=== PATIENT | male | born 2000 | race Caucasian/White ===

== ENCOUNTER 2021-01-26 18:23 | Emergency (ER) | payer SELFPAY ==
[2021-01-26 22:40] LABS: Urine Blood Trace-intact (Negative); Urine Glucose Negative (Negative); Urine Protein Negative (Negative); Urine Specific Gravity >=1.030 (1.005-1.030)
[2021-01-26 22:52] LABS: Absolute Lymphocytes (CBC) 2.5 K/uL (0.7-4.9); Basophils % 0.4 % (0-1.3); Hematocrit 44.5 % (39.6-49.0); Lymphocytes % 28.4 % (15.3-44.8); MPV 8.9 fL (7.6-11.3)
[2021-01-26 22:56] LABS: Protime INR 1.01
[2021-01-26 23:04] LABS: Barbiturates NEGATIVE (NEGATIVE); Benzodiazepines NEGATIVE (NEGATIVE); Cocaine NEGATIVE (NEGATIVE); METHAMPHETAM NEGATIVE (NEGATIVE); Methadone NEGATIVE (NEGATIVE); Opiates NEGATIVE (NEGATIVE); Phencyclidine NEGATIVE (NEGATIVE); THC Cannibis POSITIVE (NEGATIVE)
[2021-01-26 23:25] LABS: ALT/SGPT 24 U/L (12-78); AST/SGOT 17 U/L (15-37); Alkaline Phosphatase 67 U/L (45-117); BUN Blood Urea Nitrogen 18 mg/dL (7-18); Bicarbonate 32 mmol/L (21-32); Bilirubin Direct 0.2 mg/dL (0-0.2); Bilirubin Total 0.5 mg/dL (0.2-1.0); Glucose Level 146 mg/dL (74-106); Potassium 3.9 mmol/L (3.5-5.1); Protein, Total 8.6 g/dL (6.4-8.2); Sodium Level 138 mmol/L (136-145)
--- NOTE | 2021-01-27 02:12 | ER ---
Nurse's Notes [facility] Name: Lokesh Alberts Age: 20 yrs Sex: Male : 2000 Arrival Date: 01/26/2021 Time: 18:24 Bed 16 Private MD: Diagnosis: Acute stress reaction Presentation: 01/26 19:21 Chief complaint: Patient states: I called the Suicide National Prevention Hotline and ca1 they told me to come here. I want to kill myself by slicing my throat. Had 1 previous attempt in the past year. Coronavirus screen: Client denies travel out of the [place] in the last 14 days. At this time, the client does not indicate any symptoms associated with coronavirus-19. Ebola Screen: Patient negative for fever greater than or equal to 101.5 degrees Fahrenheit, and additional compatible Ebola Virus Disease symptoms Patient denies exposure to infectious person. Patient denies travel to an Ebola-affected area in the 21 days before illness onset. No symptoms or risks identified at this time. Initial Sepsis Screen: Does the patient meet any 2 criteria? No. Patient's initial sepsis screen is negative. Does the patient have a suspected source of infection? No. Patient's initial sepsis screen is negative. Risk Assessment: Do you want to hurt yourself or someone else? Patient reports desire/thoughts of hurting themselves or someone else. Provider notified. Onset of symptoms was January 26, 2021. 19:21 Method Of Arrival: Ambulatory ca1 19:21 Acuity: ANTOLIN 2 ca1 Historical: - Allergies: 19:24 Zoloft; ca1 - Home Meds: 19:24 None [Active]; ca1 - PMHx: 19:24 Depressive disorder; Anxiety; ca1 - Immunization history:: Client reports having NOT received the Covid vaccine. Flu vaccine is up to date. - Social history:: Smoking status: Patient reports the use of cigarette tobacco products, smokes one pack cigarettes per day. Patient uses alcohol, but reports only rare drinking. street drugs, marijuana. Screenin:15 Abuse screen: Denies threats or abuse. Denies injuries from another. Nutritional bs2 screening: No deficits noted. Tuberculosis screening: No symptoms or risk factors identified. Fall Risk None identified. Assessment: 19:26 Reassessment: Reassessment: Notified charge nurse. Pt with aunt. ca1 21:15 General: Appears in no apparent distress. comfortable, slender, well groomed, well bs2 developed, well nourished, Behavior is calm, cooperative, appropriate for age. Pain: Denies pain. Neuro: No deficits noted. Cardiovascular: No deficits noted. Respiratory: No deficits noted. GI: No deficits noted. No signs and/or symptoms were reported involving the gastrointestinal system. : No deficits noted. No signs and/or symptoms were reported regarding the genitourinary system. EENT: No deficits noted. No signs and/or symptoms were reported regarding the EENT system. Derm: No deficits noted. No signs and/or symptoms reported regarding the dermatologic system. Musculoskeletal: No deficits noted. No signs and/or symptoms reported regarding the musculoskeletal system. Psych: 21:15 [place] Suicide Severity Screening: In the past month, have you wished you were bs2 or wished you could go to sleep and not wake up? Patient responds "yes." Based off the client's responses additional C-SSRS screening is required. "In the past month, have you actually had any thoughts of killing yourself?" Patient responds "yes." Based off the client's response additional [place] suicide severity screening questions to be further documented on paper forms. "In your lifetime, have you ever done anything, started to do anything, or prepared to do anything to end your life?" Patient responds "yes." Patient reports suicidal intent occurred greater than 3 months prior. Subjective: Patient's mood is sad, Delusions are denied, Hallucinations are denied Having thoughts of suicide. Denies suicidal plan. Objective: Patient is cooperative, Speech is normal, Affect is appropriate. Interventions: Searched person for dangerous items. Urine collected and sent for urine drug test. Safety Checks: Personal items have been removed. Door is open. Visitors are present. Pt denies substance abuse. Commitment: Patient will be a voluntary commitment. Vital Signs: 19:21 BP 132 / 91; Pulse 114; Resp 18 S; Temp 99.5; Pulse Ox 99% ; Weight 50.8 kg (R); Height ca1 5 ft. 8 in. (172.72 cm) (R); Pain 0/10; 07 02:00 BP 128 / 89 RA Sitting (auto/reg); Pulse 95 MON; Resp 15 S; Temp 98.6(O); Pulse Ox 100% bs2 on R/A; Pain 0/10; 01/26 19:21 Body Mass Index 17.03 (50.80 kg, 172.72 cm) ca1 [place] Coma Score: 01/26 21:15 Eye Response: spontaneous(4). Verbal Response: oriented(5). Motor Response: obeys bs2 commands(6). Total: 15. ED Course: 18:24 Patient arrived in ED. mr 19:24 Triage completed. ca1 19:24 Arm band placed on right wrist. ca1 21:14 Dusty Atkinson NP is PHCP. pm1 21:14 Candido Hurst MD is Attending Physician. pm1 21:15 Safety Checks: Personal items have been removed. The door is open or patient has been bs2 placed in a hallway bed/chair. A family member and/or friend is present and encouraged to stay. Sitter not present at this time due to or because pt is in view of nurses station, has family at bedside, door and curtain are open, pt was checked for weapons, all cords removed from room., also got verbal agreement with patient not to harm himself or attempt to harm himself here in ER. 21:15 Patient has correct armband on for positive identification. Bed in low position. Adult bs2 w/ patient. 22:09 Dayana Barry, PHILIP is Primary Nurse. bs2 23:47 Acetaminophen Sent. bs2 23:47 Basic Metabolic Panel Sent. bs2 01/27 00:11 called [facility] Crisis Line spoke to Tere to have a screener evaluate the patient. mw2 00:37 [facility] from [facility] called to inform us he is enroute to screen the patient. mw2 03:29 No provider procedures requiring assistance completed. IV discontinued. bs2 Administered Medications: No medications were administered Outcome: 02:11 Discharge ordered by MD. pm1 02:25 Discharge instructions given to patient, family, Instructed on discharge instructions, bs2 follow up and referral plans. Demonstrated understanding of instructions, follow-up care. 03:30 Patient left the ED. em 03:30 Discharged to home ambulatory, with family. bs2 03:30 Condition: improved Signatures: Erum Chris mr Polo Quintero RN RN em Dusty Atkinson, FIRE SAFETY MANAGER FIRE SAFETY MANAGER pm1 Laureano Madsen mw2 Deyanira Hagan, RN RN ca1 Dayana Barry RN RN bs2 Corrections: (The following items were deleted from the chart) 01/26 19 19:24 Allergies: No Known Allergies; ca1 ca1 19:26 Reassessment: ca1 ca1
--- NOTE | 2021-01-27 02:12 | EDPHYS ---
Physician Documentation [facility] Name: Lokesh Alberts Age: 20 yrs Sex: Male : 2000 Arrival Date: 01/26/2021 Time: 18:24 Bed 16 Private MD: ED Physician Candido Hurst HPI: 01/26 21:15 This 20 yrs old Male presents to ER via Ambulatory with complaints of Psych pm1 Problem. 21:15 The patient presents to the emergency department with suicide ideation, and the patient pm1 has a plan, Cut himself. Onset: The symptoms/episode began/occurred today. Past psychiatric history: Prior diagnosis: depression, Psychiatric medications include: none, Primary psychiatric physician: the patient does not have a primary psychiatric physician. Associated signs and symptoms: Pertinent negatives: abdominal pain, anxiety, delusions, fever, hallucinations, shortness of breath. Severity of symptoms: in the emergency department the symptoms have improved. The patient has experienced similar episodes in the past, several times. The patient has not recently seen a physician. Patient wanted to come to the ER for a prescription of antidepressants. Patient depressed and feeling suicidal after breaking up with his girlfriend. Historical: - Allergies: 19:24 Zoloft; ca1 - Home Meds: 19:24 None [Active]; ca1 - PMHx: 19:24 Depressive disorder; Anxiety; ca1 - Immunization history:: Client reports having NOT received the Covid vaccine. Flu vaccine is up to date. - Social history:: Smoking status: Patient reports the use of cigarette tobacco products, smokes one pack cigarettes per day. Patient uses alcohol, but reports only rare drinking. street drugs, marijuana. ROS: 21:15 Constitutional: Negative for fever, chills, and weight loss, Cardiovascular: Negative pm1 for chest pain, palpitations, and edema, Respiratory: Negative for shortness of breath, cough, wheezing, and pleuritic chest pain, Abdomen/GI: Negative for abdominal pain, nausea, vomiting, diarrhea, and constipation, MS/Extremity: Negative for injury and deformity, Skin: Negative for injury, rash, and discoloration. 21:15 All other systems are negative. Exam: 21:15 Constitutional: This is a well developed, well nourished patient who is awake, alert, pm1 and in no acute distress. Head/Face: Normocephalic, atraumatic. 21:15 Back: No spinal tenderness. No costovertebral tenderness. Full range of motion. 21:15 Skin: Warm, dry with normal turgor. Normal color with no rashes, no lesions, and no evidence of cellulitis. MS/ Extremity: Pulses equal, no cyanosis. Neurovascular intact. Full, normal range of motion. 21:15 Eyes: Exam is negative for acute changes, Periorbital structures: appear normal, Pupils: no acute changes, Extraocular movements: intact throughout, Conjunctiva: no acute changes, no injection. 21:15 ENT: Mouth: no acute changes, Lips: normal, Oral mucosa: normal, pink and intact, moist. 21:15 Cardiovascular: Exam negative for acute changes, Rate: normal, Rhythm: regular, Pulses: no pulse deficits are appreciated. 21:15 Respiratory: Exam negative for acute changes, respiratory distress, shortness of breath. 21:15 Abdomen/GI: Inspection: abdomen appears normal, Palpation: abdomen is soft and non-tender, in all quadrants. 21:15 Neuro: Exam negative for acute changes, Orientation: is normal, Mentation: is normal, Motor: is normal, moves all fours. Vital Signs: 19:21 BP 132 / 91; Pulse 114; Resp 18 S; Temp 99.5; Pulse Ox 99% ; Weight 50.8 kg (R); Height ca1 5 ft. 8 in. (172.72 cm) (R); Pain 0/10; 01/27 02:00 BP 128 / 89 RA Sitting (auto/reg); Pulse 95 MON; Resp 15 S; Temp 98.6(O); Pulse Ox 100% bs2 on R/A; Pain 0/10; 01/26 19:21 Body Mass Index 17.03 (50.80 kg, 172.72 cm) ca1 [place] Coma Score: 01/26 21:15 Eye Response: spontaneous(4). Verbal Response: oriented(5). Motor Response: obeys bs2 commands(6). Total: 15. MDM: 21:15 Patient medically screened. pm1 01/27 00:27 Data reviewed: vital signs. Data interpreted: Pulse oximetry: on room air is 99 %. pm1 Interpretation: normal. Counseling: I had a detailed discussion with the patient and/or guardian regarding: lab results. 00:42 ED course: Pending [facility] evalution. pm1 02:08 ED course: Leon Zeng, recommends outpatient evaluation and someone from [address] will be calling him to schedule an appointment. 01/26 21:14 Order name: Acetaminophen pm1 01/26 21:14 Order name: Basic Metabolic Panel pm1 01/26 21:14 Order name: CBC with Diff; Complete Time: 23:12 pm1 01/26 21:14 Order name: ETOH Level; Complete Time: 00:32 pm1 01/26 21:14 Order name: Hepatic Function; Complete Time: 00:32 pm1 01/26 21:14 Order name: PT-INR; Complete Time: 00:32 pm1 01/26 21:14 Order name: Ptt, Activated; Complete Time: 00:32 pm1 01/26 21:14 Order name: Salicylate; Complete Time: 00:32 pm1 01/26 21:14 Order name: Urine Drug Screen; Complete Time: 23:12 pm1 01/26 21:14 Order name: Acetaminophen Level; Complete Time: 00:32 EDMS 01/26 21:14 Order name: Basic Metabolic Panel; Complete Time: 00:32 EDMS 01/26 22:39 Order name: Urine Dipstick-Ancillary; Complete Time: 22:53 EDMS 01/26 22:40 Order name: SARS-COV-2 RT PCR; Complete Time: 22:53 EDMS 01/26 21:14 Order name: EKG - Nurse/Tech pm1 01/26 21:14 Order name: Labs collected and sent; Complete Time: 23:47 pm1 01/26 21:14 Order name: Suicide Screening ([place]); Complete Time: 23:47 pm1 01/26 21:14 Order name: Urine Dipstick-Ancillary (obtain specimen); Complete Time: 23:47 pm1 Administered Medications: No medications were administered Disposition: 13:19 Co-signature as Attending Physician, Candido Hurst MD I agree with the assessment and jatinder plan of care. Disposition Summary: 01/27/21 02:11 Discharge Ordered Location: Home pm1 Problem: new pm1 Symptoms: have improved pm1 Condition: Stable pm1 Diagnosis - Acute stress reaction pm1 Followup: pm1 - With: Emergency Department - When: As needed - Reason: Worsening of condition Followup: pm1 - With: Private Physician - When: 2 - 3 days - Reason: Recheck today's complaints, Continuance of care, Re-evaluation by your physician Discharge Instructions: - Discharge Summary Sheet pm1 - Stress, Adult pm1 Forms: - Medication Reconciliation Form pm1 - Thank You Letter pm1 - Antibiotic Education pm1 - Prescription Opioid Use pm1 Signatures: Dispatcher [employer] EDMS Candido Hurst MD MD cha Marinas, Patrick, SECURITY PROJECT MANAGER SECURITY PROJECT MANAGER pm1 Deyanira Hagan RN RN ca1 Corrections: (The following items were deleted from the chart) 01/26 19:25 19:24 Allergies: No Known Allergies; ca1 ca1 21:33 21:15 CORONAVIRUS+MR.LAB.BRZ ordered. EDMN EDMS
[2021-01-27 05:31] VITALS: BP 132/91; TEMP 99.5; O2SAT 99
== END 2021-01-27 03:30 | disposition home or self-care (01) ==
LOC: ER 18:23
DX: F43.0 Acute stress reaction (principal); F17.210 Nicotine dependence, cigarettes, uncomplicated; Z20.822 Contact with and (suspected) exposure to COVID-19; Z88.5 Allergy status to narcotic agent
CPT/HCPCS: 36415; 80048; 80076; 80307; 80320; 80329; 81003; 85025; 85610; 85730; 99284; U0003

== ENCOUNTER 2022-05-28 12:38 | Emergency (ER) | payer SELFPAY ==
--- NOTE | 2022-05-28 13:47 | ER ---
Nurse's Notes [facility] Name: Lokesh Alberts Age: 21 yrs Sex: Male : 2000 Arrival Date: 05/28/2022 Time: 12:43 Bed Treatment Private MD: Diagnosis: Acute serous otitis media, right ear Presentation: 05/28 13:02 Chief complaint: Right ear pain and decreased hearing x 3 days. Coronavirus screen: At this time, the client does not indicate any symptoms associated with coronavirus-19. Ebola Screen: No symptoms or risks identified at this time. Initial Sepsis Screen: Does the patient meet any 2 criteria? No. Patient's initial sepsis screen is negative. Does the patient have a suspected source of infection? No. Patient's initial sepsis screen is negative. Risk Assessment: Do you want to hurt yourself or someone else? Patient reports no desire to harm self or others. Onset of symptoms was May 25, 2022. 13:02 Method Of Arrival: Ambulatory 13:02 Acuity: ANTOLIN 4 Historical: - Allergies: 13:03 Zoloft; ss - PMHx: 13:03 Anxiety; depressive disorder; ss Screenin:52 Abuse screen: Denies threats or abuse. Denies injuries from another. Nutritional iw screening: No deficits noted. Tuberculosis screening: No symptoms or risk factors identified. Fall Risk None identified. Assessment: 13:52 General: Appears in no apparent distress. Behavior is calm, cooperative. Pain: iw Complains of pain in right ear. Neuro: Level of Consciousness is awake, alert, obeys commands, Oriented to person, place, time, situation, Moves all extremities. Full function. Cardiovascular: Patient's skin is warm and dry. Respiratory: Airway is patent Respiratory effort is even, unlabored, Respiratory pattern is regular, symmetrical, Ventilator assessment:. EENT: No deficits noted. Derm: Skin is intact, is healthy with good turgor. Vital Signs: 13:02 BP 125 / 78; Pulse 89; Resp 16; Temp 99.7; Pulse Ox 98% ; Weight 58.97 kg; Height 5 ft. ss 8 in. (172.72 cm); Pain 1/10; 13:02 Body Mass Index 19.77 (58.97 kg, 172.72 cm) ED Course: 12:43 Patient arrived in ED. am2 12:59 Markus Sauer is PHCP. jl9 12:59 Kenan Villar MD is Attending Physician. jl9 13:03 Triage completed. 13:52 Lo Zarate, RN is Primary Nurse. iw Administered Medications: No medications were administered Outcome: 13:46 Discharge ordered by . jl9 13:52 Patient left the ED. iw Signatures: Lo Zarate, RN PHILIP Audelia Bhatia RN RN Charisse Oviedo am2 Markus Sauer jl9
--- NOTE | 2022-05-28 13:47 | EDPHYS ---
Physician Documentation [facility] Name: Lokesh Alberts Age: 21 yrs Sex: Male : 2000 Arrival Date: 05/28/2022 Time: 12:43 Bed Treatment Private MD: ED Physician Kenan Villar HPI: 05/28 13:44 This 21 yrs old Male presents to ER via Ambulatory with complaints of Ear jl9 Pain - right. 13:44 The patient presents with pain, moderate. The complaints affect the right ear. Onset: jl9 The symptoms/episode began/occurred yesterday. Modifying factors: The symptoms are alleviated by nothing, the symptoms are aggravated by nothing. Associated signs and symptoms: The patient has no apparent associated signs or symptoms. Severity of symptoms: Pain is currently a 3 / 10. Historical: - Allergies: 13:03 Zoloft; ss - PMHx: 13:03 Anxiety; depressive disorder; ss ROS: 13:45 Constitutional: Negative for fever, chills, and weight loss, Eyes: Negative for injury, jl9 pain, redness, and discharge. 13:45 Neck: Negative for injury, pain, and swelling, Cardiovascular: Negative for chest pain, palpitations, and edema, Respiratory: Negative for shortness of breath, cough, wheezing, and pleuritic chest pain, Abdomen/GI: Negative for abdominal pain, nausea, vomiting, diarrhea, and constipation, Back: Negative for injury and pain, : Negative for injury, bleeding, discharge, and swelling, MS/Extremity: Negative for injury and deformity, Skin: Negative for injury, rash, and discoloration, Neuro: Negative for headache, weakness, numbness, tingling, and seizure, Psych: Negative for depression, anxiety, suicide ideation, homicidal ideation, and hallucinations, Allergy/Immunology: Negative for hives, rash, and allergies, Endocrine: Negative for neck swelling, polydipsia, polyuria, polyphagia, and marked weight changes, Hematologic/Lymphatic: Negative for swollen nodes, abnormal bleeding, and unusual bruising. 13:45 ENT: Positive for ear pain. Exam: 13:45 Constitutional: This is a well developed, well nourished patient who is awake, alert, jl9 and in no acute distress. Head/Face: Normocephalic, atraumatic. Eyes: Pupils equal round and reactive to light, extra-ocular motions intact. Lids and lashes normal. Conjunctiva and sclera are non-icteric and not injected. Cornea within normal limits. Periorbital areas with no swelling, redness, or edema. 13:45 Neck: Trachea midline, no thyromegaly or masses palpated, and no cervical lymphadenopathy. Supple, full range of motion without nuchal rigidity, or vertebral point tenderness. No Meningismus. Chest/axilla: Normal chest wall appearance and motion. Nontender with no deformity. No lesions are appreciated. Cardiovascular: Regular rate and rhythm with a normal S1 and S2. No gallops, murmurs, or rubs. Normal PMI, no JVD. No pulse deficits. Respiratory: Lungs have equal breath sounds bilaterally, clear to auscultation and percussion. No rales, rhonchi or wheezes noted. No increased work of breathing, no retractions or nasal flaring. Abdomen/GI: Soft, non-tender, with normal bowel sounds. No distension or tympany. No guarding or rebound. No evidence of tenderness throughout. Back: No spinal tenderness. No costovertebral tenderness. Full range of motion. Skin: Warm, dry with normal turgor. Normal color with no rashes, no lesions, and no evidence of cellulitis. MS/ Extremity: Pulses equal, no cyanosis. Neurovascular intact. Full, normal range of motion. Neuro: Awake and alert, GCS 15, oriented to person, place, time, and situation. Cranial nerves II-XII grossly intact. Motor strength 5/5 in all extremities. Sensory grossly intact. Cerebellar exam normal. Normal gait. Psych: Awake, alert, with orientation to person, place and time. Behavior, mood, and affect are within normal limits. 13:45 ENT: External ear(s): are unremarkable, Ear canal(s): are normal, TM's: erythema, that is moderate, Nose: is normal, Mouth: is normal, Posterior pharynx: is normal. Vital Signs: 13:02 BP 125 / 78; Pulse 89; Resp 16; Temp 99.7; Pulse Ox 98% ; Weight 58.97 kg; Height 5 ft. ss 8 in. (172.72 cm); Pain 1/10; 13:02 Body Mass Index 19.77 (58.97 kg, 172.72 cm) MDM: 13:09 Patient medically screened. jl9 13:45 Data reviewed: vital signs, nurses notes. Counseling: I had a detailed discussion with jl9 the patient and/or guardian regarding: the historical points, exam findings, and any diagnostic results supporting the discharge/admit diagnosis, the need for outpatient follow up, to return to the emergency department if symptoms worsen or persist or if there are any questions or concerns that arise at home. Administered Medications: No medications were administered Disposition Summary: 05/28/22 13:46 Discharge Ordered Location: Home jl9 Condition: Stable jl9 Diagnosis - Acute serous otitis media, right ear jl9 Followup: jl9 - With: Private Physician - When: 1 - 2 days - Reason: Recheck today's complaints, Continuance of care, Re-evaluation by your physician Discharge Instructions: - Discharge Summary Sheet jl9 - Otitis Media, Adult, [id number] jl9 Forms: - Medication Reconciliation Form jl9 - Thank You Letter jl9 - Antibiotic Education jl9 - Prescription Opioid Use jl9 Prescriptions: - Amoxicillin 875 mg Oral Tablet - take 1 tablet by ORAL route every 12 hours for 10 days; 20 tablet; Refills: 0, jl9 Product Selection Permitted Signatures: Audelia Bhatia, RN RN Markus Love jl9
[2022-05-28 14:25] VITALS: BP 125/78; TEMP 99.7; O2SAT 98
== END 2022-05-28 13:52 | disposition home or self-care (01) ==
LOC: ER 12:38
DX: H65.01 Acute serous otitis media, right ear (principal); Z88.8 Allergy status to other drugs, medicaments and biological substances
CPT/HCPCS: 99281

== ENCOUNTER 2022-07-23 13:28 | Emergency (ER) | payer SELFPAY ==
[2022-07-23 14:20] LABS: Urine Blood Trace-intact (Negative); Urine Glucose Negative (Negative); Urine Protein 1+ (Negative); Urine Specific Gravity >=1.030 (1.005-1.030); Urine pH 5.5 (5.0-7.0)
[2022-07-23 14:30] LABS: Lymphocytes % 14.3 % (15.3-44.8); MCV 87.8 fL (80-100); MPV 8.1 fL (7.6-11.3); RBC Red Blood Cell Count 5.01 M/uL (4.33-5.43)
[2022-07-23 14:54] LABS: Albumin 4.6 g/dL (3.4-5.0); Bilirubin Total 0.8 mg/dL (0.2-1.0); Protein, Total 7.8 g/dL (6.4-8.2)
[2022-07-23] MEDS ORDERED: NA CHLORIDE 0.9% 1,000 ML ONE (14:56)
--- NOTE | 2022-07-23 17:22 | RAD REPORT ---
EXAM DESCRIPTION: CT - Abdomen Pelvis W Contrast - 07/23/2022 5:04 pm CLINICAL HISTORY: abd pain COMPARISON: <Comparisons> TECHNIQUE: Biphasic, helical CT imaging of the abdomen and pelvis was performed following 100 ml non -ionic IV contrast. Oral contrast: No. All CT scans are performed using dose optimization technique as appropriate and may include automated exposure control or mA/KV adjustment according to patient size. FINDINGS: No suspicious findings in the lung bases. The liver, spleen, and pancreas show no suspicious findings. Gallbladder and biliary tree are also wi thout suspicious finding. Symmetric renal function is seen with no hydronephrosis or suspicious renal mass. No pyelonephritis o r acute parenchymal process. No bladder abnormalities. No adrenal abnormalities. No dilated bowel loops or bowel wall thickening. Appendix is normal. No free air, free fluid or infla mmatory stranding. No hernia, mass or bulky lymphadenopathy. A few small nonspecific sub centimeter mesenteric nodes seen. No suspicious bony findings. IMPRESSION: Contrast enhanced CT abdomen and pelvis showing no significant or suspicious finding.
--- NOTE | 2022-07-23 17:27 | ER ---
Nurse's Notes [facility] Name: Lokesh Alberts Age: 21 yrs Sex: Male : 2000 Arrival Date: 07/23/2022 Time: 13:30 Bed DIS2 Private MD: Diagnosis: Lower abdominal pain, unspecified Presentation: 07/23 13:31 Chief complaint: Patient states: back pain that began 1 week ago. No known injury. ss Coronavirus screen: Client denies travel out of the [place] in the last 14 days. Ebola Screen: Patient denies exposure to infectious person. Patient denies travel to an Ebola-affected area in the 21 days before illness onset. Initial Sepsis Screen: Does the patient meet any 2 criteria? No. Patient's initial sepsis screen is negative. Does the patient have a suspected source of infection? No. Patient's initial sepsis screen is negative. 13:31 Method Of Arrival: EMS: [facility] 13:46 Chief complaint: Patient states: Bilateral flank pain that wraps around to lower kb3 abdomen on both sides with nausea. Risk Assessment: Do you want to hurt yourself or someone else? Patient reports no desire to harm self or others. Onset of symptoms was July 17, 2022. 13:46 Acuity: ANTOLIN 3 kb3 Triage Assessment: 13:47 General: Appears in no apparent distress. Behavior is calm, cooperative. Pain: kb3 Complains of pain in left low back and right low back Pain radiates to right lower quadrant and left lower quadrant. Historical: - Allergies: 13:47 Zoloft; kb3 - Home Meds: 13:47 None [Active]; kb3 - PMHx: 13:47 Anxiety; depressive disorder; kb3 - PSHx: 13:47 None; kb3 - Immunization history:: Adult Immunizations up to date, Client reports having NOT received the Covid vaccine. Last tetanus immunization: up to date. - Social history:: Smoking status: Patient reports the use of cigarette tobacco products. Screenin:26 [facility] ED Fall Risk Assessment (Adult) History of falling in the last 3 months, jh5 including since admission No falls in past 3 months (0 pts) Confusion or Disorientation No (0 pts) Intoxicated or Sedated No (0 pts) Impaired Gait No (0 pts) Mobility Assist Device Used No (0 pt) Altered Elimination No (0 pt) Score/Fall Risk Level 0 - 2 = Low Risk. Abuse screen: Denies threats or abuse. Denies injuries from another. Nutritional screening: No deficits noted. Tuberculosis screening: No symptoms or risk factors identified. Assessment: 15:55 General: Appears in no apparent distress. comfortable, Behavior is calm, cooperative. ss Pain: Complains of pain in right low back and left low back Pain currently is 5 out of 10 on a pain scale. Quality of pain is described as tender, Is continuous. Neuro: Level of Consciousness is awake, alert, obeys commands, Oriented to person, place, time, situation. Cardiovascular: Capillary refill < 3 seconds is brisk in bilateral fingers. Respiratory: Airway is patent Respiratory effort is even, unlabored, Respiratory pattern is regular, symmetrical. GI: No signs and/or symptoms were reported involving the gastrointestinal system. Derm: Skin is intact, is healthy with good turgor, Skin is pink, warm \T\ dry. normal. Musculoskeletal: Circulation, motion, and sensation intact. Range of motion: Swelling absent. Vital Signs: 13:46 BP 129 / 92; Pulse 108; Resp 18; Temp 98.2; Pulse Ox 100% ; Weight 54.43 kg; Height 5 kb3 ft. 8 in. (172.72 cm); Pain 5/10; 13:46 Body Mass Index 18.25 (54.43 kg, 172.72 cm) kb3 ED Course: 13:30 Patient arrived in ED. as 13:33 [facility] Val[facility]C [facility] kb 13:33 Johnny Henderson DO is Attending Physician. kb 13:47 Triage completed. kb3 13:47 Arm band placed on right wrist. kb3 14:25 CBC with Diff Sent. jh5 14:25 CMP Sent. jh5 14:25 Lipase Sent. jh5 14:25 Inserted saline lock: 20 gauge in left antecubital area, using aseptic technique. jh5 14:26 Patient has correct armband on for positive identification. jh5 14:26 No provider procedures requiring assistance completed. jh5 15:54 Audelia Bhatia, RN is Primary Nurse. ss 17:06 CT Abd/Pelvis - IV Contrast Only In Process Unspecified. EDMS 17:35 IV discontinued, intact, bleeding controlled, No redness/swelling at site. Pressure ss dressing applied. Administered Medications: 14:52 Drug: NS 0.9% 1000 ml Route: IV; Rate: 1000 ml; Site: left antecubital; ss 15:54 Follow up: IV Status: Completed infusion; IV Intake: 1000ml ss Medication: 15:55 VIS not applicable for this client. ss Intake: 15:54 IV: 1000ml; Total: 1000ml. ss Outcome: 17:27 Discharge ordered by . keith 17:35 Discharged to home ambulatory. ss 17:35 Condition: good 17:35 Discharge instructions given to patient, Instructed on discharge instructions, follow up and referral plans. medication usage, Demonstrated understanding of instructions, follow-up care, medications. 17:38 Patient left the ED. ss Signatures: Dispatcher [employer] EDMS Kirsten Valera, POLO MONREAL-Arianna Rankin Shelby, RN RN Juliette Ambriz RN RN jh5 Brooke Bledsoe, RN RN kb3
--- NOTE | 2022-07-23 17:28 | EDPHYS ---
Physician Documentation [facility] Name: Lokesh Alberts Age: 21 yrs Sex: Male : 2000 Arrival Date: 07/23/2022 Time: 13:30 Bed DIS2 Private MD: ED Physician Johnny Henderson HPI: 07/24 00:37 This 21 yrs old Male presents to ER via EMS with complaints of Weakness, Arm Pain, Low kb Back Pain, Abdominal Pain. 00:37 The patient presents with abdominal pain in the lower abdomen. kb 00:37 Onset: The symptoms/episode began/occurred 1 week(s) ago. The symptoms radiate to back. kb Associated signs and symptoms: none. The symptoms are described as constant. Modifying factors: The symptoms are alleviated by nothing, the symptoms are aggravated by nothing. Severity of pain: At its worst the pain was moderate in the emergency department the pain is unchanged. The patient has not experienced similar symptoms in the past. The patient has not recently seen a physician. Historical: - Allergies: 07/23 13:47 Zoloft; kb3 - Home Meds: 13:47 None [Active]; kb3 - PMHx: 13:47 Anxiety; depressive disorder; kb3 - PSHx: 13:47 None; kb3 - Immunization history:: Adult Immunizations up to date, Client reports having NOT received the Covid vaccine. Last tetanus immunization: up to date. - Social history:: Smoking status: Patient reports the use of cigarette tobacco products. ROS: 07/24 00:37 Constitutional: Negative for fever, chills, and weight loss. kb Abdomen/GI: Positive for abdominal pain, Negative for nausea, vomiting, and diarrhea. All other systems are negative. Exam: 00:37 Constitutional: This is a well developed, well nourished patient who is awake, alert, kb and in no acute distress. Head/Face: Normocephalic, atraumatic. ENT: Moist Mucous membranes Cardiovascular: Regular rate and rhythm with a normal S1 and S2. No gallops, murmurs, or rubs. No pulse deficits. Respiratory: Respirations even and unlabored. No increased work of breathing. Talking in full sentences Skin: Warm, dry with normal turgor. Normal color. MS/ Extremity: Pulses equal, no cyanosis. Neurovascular intact. Full, normal range of motion. Neuro: Awake and alert, GCS 15, oriented to person, place, time, and situation. Moves all extremities. Normal gait. Psych: Awake, alert, with orientation to person, place and time. Behavior, mood, and affect are within normal limits. 00:37 Abdomen/GI: Inspection: abdomen appears normal, Bowel sounds: normal, Palpation: soft, in all quadrants, mild abdominal tenderness, in the right lower quadrant and left lower quadrant. Vital Signs: 07/23 13:46 BP 129 / 92; Pulse 108; Resp 18; Temp 98.2; Pulse Ox 100% ; Weight 54.43 kg; Height 5 kb3 ft. 8 in. (172.72 cm); Pain 5/10; 13:46 Body Mass Index 18.25 (54.43 kg, 172.72 cm) kb3 MDM: 13:45 Patient medically screened. kb 07/24 00:37 Data reviewed: vital signs, nurses notes. Data interpreted: Pulse oximetry: on room air kb is 100 %. Interpretation: normal. Counseling: I had a detailed discussion with the patient and/or guardian regarding: the historical points, exam findings, and any diagnostic results supporting the discharge/admit diagnosis, lab results, radiology results, the need for outpatient follow up, a family practitioner, to return to the emergency department if symptoms worsen or persist or if there are any questions or concerns that arise at home. 00:43 Differential diagnosis: appendicitis, diverticulitis, Ureterolithiasis. kb 07/23 13:47 Order name: CBC with Diff; Complete Time: 14:43 kb 07/23 13:47 Order name: CMP; Complete Time: 15:08 kb 07/23 13:47 Order name: Lipase; Complete Time: 15:08 kb 07/23 14:21 Order name: Urine Dipstick-Ancillary; Complete Time: 14:43 EDMS 07/23 16:22 Order name: CT Abd/Pelvis - IV Contrast Only; Complete Time: 17:26 kb 07/23 13:47 Order name: IV Saline Lock; Complete Time: 14:25 kb 07/23 13:47 Order name: Labs collected and sent; Complete Time: 14:25 kb 07/23 13:47 Order name: Urine Dipstick-Ancillary (obtain specimen); Complete Time: 14:25 kb Administered Medications: 07/23 14:52 Drug: NS 0.9% 1000 ml Route: IV; Rate: 1000 ml; Site: left antecubital; 15:54 Follow up: IV Status: Completed infusion; IV Intake: 1000ml ss Disposition Summary: 07/23/22 17:27 Discharge Ordered Location: Home kb Condition: Stable kb Diagnosis - Lower abdominal pain, unspecified kb Followup: kb - With: Emergency Department - When: As needed - Reason: Worsening of condition Followup: kb - With: Private Physician - When: 2 - 3 days - Reason: Recheck today's complaints, Continuance of care, Re-evaluation by your physician Discharge Instructions: - Discharge Summary Sheet kb - Abdominal Pain, Adult, [id number] kb Forms: - Medication Reconciliation Form kb - Thank You Letter kb - Antibiotic Education kb - Prescription Opioid Use kb Addendum: 07/25/2022 12:37 Co-signature as Attending Physician, Johnny Henderson DO I was immediately available on-site m s3 in the Emergency Department for consultation in the care of the patient.. Signatures: Dispatcher [employer] Kirsten Nieves, AUTOMATION AND CONTROLS SUPERVISOR-C AUTOMATION AND CONTROLS SUPERVISOR-Ckb Audelia Bhatia, RN RN Johnny Dias DO DO ms3 Brooke Bledsoe, RN RN kb3
[2022-07-23 18:23] VITALS: BP 129/92; TEMP 98.2; O2SAT 100
== END 2022-07-23 17:38 | disposition home or self-care (01) ==
LOC: ER 13:28
DX: R10.31 Right lower quadrant pain (principal); R10.32 Left lower quadrant pain; Z72.0 Tobacco use; Z88.8 Allergy status to other drugs, medicaments and biological substances
CPT/HCPCS: 36415; 74177; 80053; 81003; 83690; 85025; 96360; 99284; J7030; Q9967

== ENCOUNTER 2022-08-23 12:35 | Emergency (ER) | payer SELFPAY ==
--- NOTE | 2022-08-23 14:06 | RAD REPORT ---
EXAM DESCRIPTION: Denise Single View08/23/2022 2:01 pm CLINICAL HISTORY: Chest pain COMPARISON: none FINDINGS: The lungs appear clear of acute infiltrate. The heart is normal size IMPRESSION: No acute abnormalities displayed
--- NOTE | 2022-08-23 14:07 | RAD REPORT ---
EXAM DESCRIPTION: Ribs Right - 08/23/2022 2:01 pm CLINICAL HISTORY: Right rib pain FINDINGS: No fracture is seen. No pneumothorax Two views obtained
[2022-08-23 15:44] LABS: Absolute Lymphocytes (CBC) 1.5 K/uL (0.7-4.9); Hematocrit 43.8 % (39.6-49.0); Lymphocytes % 26.5 % (15.3-44.8); MPV 8.2 fL (7.6-11.3); RBC Red Blood Cell Count 4.92 M/uL (4.33-5.43)
[2022-08-23 15:48] LABS: Protime INR 1.05
[2022-08-23 16:01] LABS: Albumin 4.6 g/dL (3.4-5.0); Bilirubin Total 0.6 mg/dL (0.2-1.0); Potassium 4.5 mmol/L (3.5-5.1)
--- NOTE | 2022-08-23 16:40 | EDPHYS ---
Physician Documentation [facility] Name: Lokesh Alberts Age: 22 yrs Sex: Male : 2000 Arrival Date: 08/23/2022 Time: 12:36 Bed 11 Private MD: ED Physician Iveth Thompson HPI: 08/23 16:12 This 22 yrs old Male presents to ER via Ambulatory with complaints of Rib pain/abd pain.sp3 16:12 22-year-old male with history of anxiety presents to the ED with chief complaint of sp3 right upper quadrant abdominal pain and rib pain for approximately 4 days. Patient states his pain is getting better but today he had a "twinge" of it reminded him that it was there and so he decided to come into the ED for evaluation. Pain comes and goes and is not associated with any food or activity patterns. On review of systems he denies headache, neck pain, fever, URI symptoms, nausea, vomiting, diarrhea, chest pain, shortness of breath, back pain, rash known sick contacts, travel history, or any other symptoms at this time. There is no past surgical history noted. He consumes 1-2 beers a day and smokes occasionally and denies any recreational drug use.. Historical: - Allergies: 14:23 Zoloft; ss - Home Meds: 14:23 None [Active]; ss - PMHx: 14:23 Anxiety; depressive disorder; ss - Immunization history:: Client reports receiving the 2nd dose of the Covid vaccine. - Social history:: Smoking status: Patient reports the use of cigarette tobacco products, denies chronic smoking, but will smoke occasionally, Reported history of juuling and/or vaping. ROS: 16:13 Constitutional: Negative for fever, chills, and weight loss, Eyes: Negative for injury, sp3 pain, redness, and discharge, ENT: Negative for injury, pain, and discharge, Neck: Negative for injury, pain, and swelling, Cardiovascular: Negative for chest pain, palpitations, and edema, Respiratory: Negative for shortness of breath, cough, wheezing, and pleuritic chest pain, Back: Negative for injury and pain, MS/Extremity: Negative for injury and deformity, Skin: Negative for injury, rash, and discoloration, Neuro: Negative for headache, weakness, numbness, tingling, and seizure, Psych: Negative for depression, anxiety, suicide ideation, homicidal ideation, and hallucinations, Allergy/Immunology: Negative for hives, rash, and allergies, Endocrine: Negative for neck swelling, polydipsia, polyuria, polyphagia, and marked weight changes, Hematologic/Lymphatic: Negative for swollen nodes, abnormal bleeding, and unusual bruising. 16:13 All other systems are negative. Exam: 16:14 Constitutional: This is a well developed, well nourished patient who is awake, alert, sp3 and in no acute distress. Head/Face: Normocephalic, atraumatic. Eyes: Pupils equal round and reactive to light, extra-ocular motions intact. Lids and lashes normal. Conjunctiva and sclera are non-icteric and not injected. Cornea within normal limits. Periorbital areas with no swelling, redness, or edema. Neck: Trachea midline, no thyromegaly or masses palpated, and no cervical lymphadenopathy. Supple, full range of motion without nuchal rigidity, or vertebral point tenderness. No Meningismus. Chest/axilla: Normal chest wall appearance and motion. Nontender with no deformity. No lesions are appreciated. Cardiovascular: Regular rate and rhythm with a normal S1 and S2. No gallops, murmurs, or rubs. Normal PMI, no JVD. No pulse deficits. Respiratory: Lungs have equal breath sounds bilaterally, clear to auscultation and percussion. No rales, rhonchi or wheezes noted. No increased work of breathing, no retractions or nasal flaring. Back: No spinal tenderness. No costovertebral tenderness. Full range of motion. Skin: Warm, dry with normal turgor. Normal color with no rashes, no lesions, and no evidence of cellulitis. MS/ Extremity: Pulses equal, no cyanosis. Neurovascular intact. Full, normal range of motion. Neuro: Awake and alert, GCS 15, oriented to person, place, time, and situation. Cranial nerves II-XII grossly intact. Motor strength 5/5 in all extremities. Sensory grossly intact. Cerebellar exam normal. Normal gait. Psych: Awake, alert, with orientation to person, place and time. Behavior, mood, and affect are within normal limits. Vital Signs: 14:22 BP 120 / 80; Pulse 92; Resp 15; Temp 98.1(TE); Pulse Ox 100% on R/A; Weight 52.16 kg; ss Height 5 ft. 8 in. (172.72 cm); Pain 0/10; 16:09 BP 126 / 88; Pulse 80; Resp 18; Pulse Ox 100% on R/A; Pain 3/10; mb9 14:22 Body Mass Index 17.49 (52.16 kg, 172.72 cm) ss MDM: 16:04 Patient medically screened. sp3 16:14 Data reviewed: vital signs, nurses notes, lab test result(s), radiologic studies. ED sp3 course: 22-year-old male with right upper quadrant abdominal pain that is now fully resolved. Differential diagnosis includes liver pathology, biliary pathology including cholecystitis, cholelithiasis, pancreatitis, constipation, colitis, functional abdominal pain, and others. Clinically I ruled out kidney stone, UTI, pathology, aortic pathology including aneurysm and dissection, sepsis, shock, any other critical findings at this time. Not indicated at this time. If laboratory work including liver function and x-rays are negative, will discharge patient home with PCP follow-up with general precautions.. 16:38 ED course: Work-up is negative and we will discharge patient home at this time.. sp3 08/23 14:26 Order name: CBC with Diff; Complete Time: 16:25 ss 08/23 14:26 Order name: CMP; Complete Time: 16:25 ss 08/23 13:05 Order name: CXR XRAY sp3 08/23 13:05 Order name: Ribs Right XRAY; Complete Time: 16:25 sp3 08/23 14:26 Order name: Lipase; Complete Time: 16:25 ss 08/23 14:26 Order name: PT-INR; Complete Time: 16:25 ss 08/23 14:07 Order name: RAD; Complete Time: 16:25 EDMS 08/23 14:26 Order name: IV Saline Lock; Complete Time: 15:38 ss 08/23 14:26 Order name: Labs collected and sent; Complete Time: 15:38 ss Administered Medications: No medications were administered Disposition Summary: 08/23/22 16:39 Discharge Ordered Location: Home sp3 Condition: Stable sp3 Diagnosis - Abdominal pain sp3 Followup: sp3 - With: Private Physician - When: Upon discharge from the Emergency Department - Reason: Further diagnostic work-up Discharge Instructions: - Discharge Summary Sheet sp3 - Abdominal Pain, Adult sp3 Forms: - Medication Reconciliation Form sp3 - Thank You Letter sp3 - Antibiotic Education sp3 - Prescription Opioid Use sp3 Signatures: Dispatcher [employer] Audelia Leach, RN RN Iveth Cardenas MD MD sp3
--- NOTE | 2022-08-23 16:40 | ER ---
Nurse's Notes [facility] Name: Lokesh Alberts Age: 22 yrs Sex: Male : 2000 Arrival Date: 08/23/2022 Time: 12:36 Bed 11 Private MD: Diagnosis: Abdominal pain Presentation: 08/23 14:22 Chief complaint: Patient states: "The past couple of days, I've drank a little more ss than I should have. I've been having pain under my ribs after I drink water and I just want to get it checked out." Pt states that pain began 3-4 days ago. Coronavirus screen: Client denies travel out of the [place] in the last 14 days. Ebola Screen: Patient denies exposure to infectious person. Patient denies travel to an Ebola-affected area in the 21 days before illness onset. Initial Sepsis Screen: Does the patient meet any 2 criteria? No. Patient's initial sepsis screen is negative. Does the patient have a suspected source of infection? No. Patient's initial sepsis screen is negative. Risk Assessment: Do you want to hurt yourself or someone else? Patient reports no desire to harm self or others. Onset of symptoms was August 20, 2022. 14:22 Method Of Arrival: Ambulatory ss 14:22 Acuity: ANTOLIN 3 ss Historical: - Allergies: 14:23 Zoloft; ss - Home Meds: 14:23 None [Active]; ss - PMHx: 14:23 Anxiety; depressive disorder; ss - Immunization history:: Client reports receiving the 2nd dose of the Covid vaccine. - Social history:: Smoking status: Patient reports the use of cigarette tobacco products, denies chronic smoking, but will smoke occasionally, Reported history of juuling and/or vaping. Screenin:09 [facility] ED Fall Risk Assessment (Adult) History of falling in the last 3 months, mb9 including since admission No falls in past 3 months (0 pts) Confusion or Disorientation No (0 pts) Intoxicated or Sedated No (0 pts) Impaired Gait No (0 pts) Mobility Assist Device Used No (0 pt) Altered Elimination No (0 pt) Score/Fall Risk Level 0 - 2 = Low Risk Oriented to surroundings, Maintained a safe environment, Educated pt \\T\\ family on fall prevention, incl call for assistance when getting out of bed. Abuse screen: Denies threats or abuse. Nutritional screening: No deficits noted. Tuberculosis screening: No symptoms or risk factors identified. Assessment: 14:10 Reassessment: called patient to triage. No answer. Unable to locate patient. Registration staff states that patient is seen coming and going from ER lobby to outside and back. 16:02 Reassessment: pt brought back to ER room. mb9 16:10 General: Appears comfortable, Behavior is cooperative, appropriate for age. Pain: mb9 Complains of pain in right ribs Pain currently is 3 out of 10 on a pain scale. Pain began 2-3 days ago. Is intermittent. Neuro: Singh Agitation-Sedation Scale (RASS): 0 - Alert and Calm Level of Consciousness is awake, alert, obeys commands, Oriented to person, place, time, situation, Appropriate for age. Cardiovascular: Rhythm is regular. Respiratory: Airway is patent Respiratory effort is even, unlabored, Respiratory pattern is regular, symmetrical. GI: Abdomen is flat, non-distended. : No signs and/or symptoms were reported regarding the genitourinary system. EENT: No signs and/or symptoms were reported regarding the EENT system. Derm: Skin is pink, warm \\T\\ dry. Musculoskeletal: Range of motion: intact in all extremities. Vital Signs: 14:22 BP 120 / 80; Pulse 92; Resp 15; Temp 98.1(TE); Pulse Ox 100% on R/A; Weight 52.16 kg; ss Height 5 ft. 8 in. (172.72 cm); Pain 0/10; 16:09 BP 126 / 88; Pulse 80; Resp 18; Pulse Ox 100% on R/A; Pain 3/10; mb9 14:22 Body Mass Index 17.49 (52.16 kg, 172.72 cm) ED Course: 12:36 Patient arrived in ED. mr 13:05 Iveth Thompson MD is Attending Physician. sp3 14:08 Ribs Right XRAY In Process Unspecified. EDMS 14:23 Triage completed. ss 14:23 Arm band placed on right wrist. ss 15:38 PT-INR Sent. bc6 15:38 CBC with Diff Sent. bc6 15:38 CMP Sent. bc6 15:38 Lipase Sent. bc6 15:38 Initial lab(s) drawn, by me, sent to lab. Inserted saline lock: 20 gauge in left bc6 antecubital area, using aseptic technique. 16:01 Erum Talbot, RN is Primary Nurse. mb9 16:10 Bed in low position. Call light in reach. Side rails up X 1. Client placed on mb9 continuous cardiac and pulse oximetry monitoring. NIBP monitoring applied. 16:45 No provider procedures requiring assistance completed. IV discontinued, intact, mb9 bleeding controlled, No redness/swelling at site. Pressure dressing applied. Administered Medications: No medications were administered Medication: 16:09 VIS not applicable for this client. mb9 Outcome: 16:39 Discharge ordered by . sp3 16:45 Discharged to home ambulatory. mb9 16:45 Condition: stable 16:45 Discharge instructions given to patient, Instructed on discharge instructions, follow up and referral plans. Demonstrated understanding of instructions, follow-up care. 16:45 Patient left the ED. mb9 Signatures: Dispatcher [employer] DIPESHVA Erum Chris Shelby, RN RN Iveth Thompson MD MD sp3 Erum Talbot, RN RN mb9 Vandana Bae [facility]
[2022-08-23 17:08] VITALS: TEMP 98.1; O2SAT 100
[2022-08-23 17:09] VITALS: BP 126/88
== END 2022-08-23 16:45 | disposition home or self-care (01) ==
LOC: ER 12:35
DX: R10.11 Right upper quadrant pain (principal)
CPT/HCPCS: 36415; 71045; 80053; 83690; 85025; 85610; 99283

== ENCOUNTER 2022-09-01 16:25 | Emergency (ER) | payer SELFPAY ==
--- NOTE | 2022-09-01 16:53 | ER ---
Nurse's Notes [facility] Name: Lokesh Alberts Age: 22 yrs Sex: Male : 2000 Arrival Date: 09/01/2022 Time: 16:28 Bed IW5 Private MD: Diagnosis: Low back pain;Myalgia Presentation: 09/01 16:51 Chief complaint: Patient states: low back and marce forearm pain that began 2 days ago ss after heavy lifting. Coronavirus screen: Client denies travel out of the [place] in the last 14 days. Ebola Screen: Patient denies exposure to infectious person. Patient denies travel to an Ebola-affected area in the 21 days before illness onset. Initial Sepsis Screen: Does the patient meet any 2 criteria? No. Patient's initial sepsis screen is negative. Does the patient have a suspected source of infection? No. Patient's initial sepsis screen is negative. Risk Assessment: Do you want to hurt yourself or someone else? Patient reports no desire to harm self or others. Onset of symptoms was August 30, 2022. 16:51 Method Of Arrival: Ambulatory ss 16:51 Acuity: ANTOLIN 4 ss Historical: - Allergies: 16:52 Zoloft; ss - PMHx: 16:52 Anxiety; depressive disorder; ss - Immunization history:: Client reports receiving the 2nd dose of the Covid vaccine. - Social history:: Smoking status: Patient reports the use of cigarette tobacco products, denies chronic smoking, but will smoke occasionally, Reported history of juuling and/or vaping. Screenin:26 [facility] ED Fall Risk Assessment (Adult) History of falling in the last 3 months, ss including since admission No falls in past 3 months (0 pts). Abuse screen: Denies threats or abuse. Denies injuries from another. Nutritional screening: No deficits noted. Tuberculosis screening: Never had TB. Assessment: 17:26 General: Appears in no apparent distress. comfortable, Behavior is calm, cooperative. ss Pain: Complains of pain in bilateral forearms, back Pain currently is 5 out of 10 on a pain scale. Neuro: Level of Consciousness is awake, alert, obeys commands, Oriented to person, place, time, situation. Respiratory: Airway is patent Respiratory effort is even, unlabored, Respiratory pattern is regular, symmetrical. Derm: Skin is intact, is healthy with good turgor, Skin is dry, Skin is pink, warm \T\ dry. normal. Vital Signs: 16:51 BP 136 / 76; Pulse 95; Resp 14; Temp 98.3(TE); Pulse Ox 100% on R/A; Weight 54.43 kg; ss Height 5 ft. 8 in. (172.72 cm); Pain 5/10; 16:51 Body Mass Index 18.25 (54.43 kg, 172.72 cm) ss ED Course: 16:28 Patient arrived in ED. rg4 16:33 [facility]C [facility] kb 16:33 Kolton Archer MD is Attending Physician. kb 16:52 Triage completed. ss 16:52 Arm band placed on right wrist. ss 17:26 Audelia Bhatia, RN is Primary Nurse. ss 17:26 Patient has correct armband on for positive identification. Bed in low position. Call ss light in reach. 17:26 No provider procedures requiring assistance completed. Patient did not have IV access ss during this emergency room visit. Administered Medications: No medications were administered Medication: 17:26 VIS not applicable for this client. ss Outcome: 16:52 Discharge ordered by . kb 17:26 Discharged to home ambulatory. ss 17:26 Condition: good 17:26 Discharge instructions given to patient, family, Instructed on discharge instructions, follow up and referral plans. medication usage, Demonstrated understanding of instructions, follow-up care, Prescriptions given X 2. 17:30 Patient left the ED. ss Signatures: Kirsten Valera FNP-C FNP-Audelia Snyder RN RN Sabi Forde rg4
--- NOTE | 2022-09-01 16:53 | EDPHYS ---
Physician Documentation [facility] Name: Lokesh Alberts Age: 22 yrs Sex: Male : 2000 Arrival Date: 09/01/2022 Time: 16:28 Bed IW5 Private MD: ED Physician Kolton Archer HPI: 09/01 17:29 This 22 yrs old Male presents to ER via Ambulatory with complaints of Back Pain, Hand kb Pain. 17:30 The patient presents with pain that is acute. The symptoms are located in the low back. kb The pain does not radiate. The problem was sustained when lifting. Onset: The symptoms/episode began/occurred 2 day(s) ago. Modifying factors: The patient symptoms are alleviated by nothing, the patient symptoms are aggravated by any movement. Associated signs and symptoms: The patient has no apparent associated signs or symptoms. Severity of symptoms: At their worst the symptoms were moderate, in the emergency department the symptoms are unchanged. The patient has not experienced similar symptoms in the past. The patient has not recently seen a physician. Historical: - Allergies: 16:52 Zoloft; ss - PMHx: 16:52 Anxiety; depressive disorder; ss - Immunization history:: Client reports receiving the 2nd dose of the Covid vaccine. - Social history:: Smoking status: Patient reports the use of cigarette tobacco products, denies chronic smoking, but will smoke occasionally, Reported history of juuling and/or vaping. ROS: 17:29 Constitutional: Negative for fever, chills, and weight loss. kb 17:29 Back: Positive for pain with movement, of the low back area. 17:29 MS/extremity: Positive for pain, of the right forearm and left forearm. 17:29 All other systems are negative. Exam: 17:29 Constitutional: This is a well developed, well nourished patient who is awake, alert, kb and in no acute distress. Head/Face: Normocephalic, atraumatic. ENT: Moist Mucous membranes Cardiovascular: Regular rate and rhythm with a normal S1 and S2. No gallops, murmurs, or rubs. No pulse deficits. Respiratory: Respirations even and unlabored. No increased work of breathing. Talking in full sentences Abdomen/GI: Soft, non-tender. No distention Skin: Warm, dry with normal turgor. Normal color. Neuro: Awake and alert, GCS 15, oriented to person, place, time, and situation. Moves all extremities. Normal gait. Psych: Awake, alert, with orientation to person, place and time. Behavior, mood, and affect are within normal limits. 17:29 Back: pain, that is moderate, of the low back area. 17:29 Musculoskeletal/extremity: Extremities: grossly normal except: noted in the right forearm and left forearm: pain, tenderness, ROM: intact in all extremities, Circulation is intact in all extremities. Sensation intact. Vital Signs: 16:51 BP 136 / 76; Pulse 95; Resp 14; Temp 98.3(TE); Pulse Ox 100% on R/A; Weight 54.43 kg; ss Height 5 ft. 8 in. (172.72 cm); Pain 5/10; 16:51 Body Mass Index 18.25 (54.43 kg, 172.72 cm) ss MDM: 16:52 Patient medically screened. kb 17:30 Differential diagnosis: strain, Myalgia. Data reviewed: vital signs, nurses notes. Test kb considered but Not performed: Labs: Urinalysis considered but patient insists there is no urinary symptoms or internal pain.. Counseling: I had a detailed discussion with the patient and/or guardian regarding: the historical points, exam findings, and any diagnostic results supporting the discharge/admit diagnosis, the need for outpatient follow up, a family practitioner, to return to the emergency department if symptoms worsen or persist or if there are any questions or concerns that arise at home. ED course: This 22-year-old male presents for low back pain and bilateral forearm pain that started 2 days ago after lifting heavy boxes and twisting a lot at work. Denies any fever, nausea, vomiting, diarrhea, abdominal pain, urinary symptoms. Mild tenderness across low back and to bilateral forearms, no bony tenderness.. Administered Medications: No medications were administered Disposition Summary: 09/01/22 16:52 Discharge Ordered Location: Home Condition: Stable kb Diagnosis - Low back pain kb - Myalgia kb Followup: kb - With: Emergency Department - When: As needed - Reason: Worsening of condition Followup: kb - With: Private Physician - When: 2 - 3 days - Reason: Recheck today's complaints, Continuance of care, Re-evaluation by your physician Discharge Instructions: - Discharge Summary Sheet kb - Musculoskeletal Pain kb - Back Injury Prevention, [id number] kb Forms: - Work release form kb - Medication Reconciliation Form kb - Thank You Letter kb - Antibiotic Education kb - Prescription Opioid Use kb Prescriptions: - Diclofenac Sodium 75 mg Oral tablet,delayed release (DR/EC) - take 1 tablet by ORAL route 2 times per day As needed; 30 tablet; Refills: 0, kb Product Selection Permitted - orphenadrine citrate 100 mg Oral Tablet Sustained Release - take 1 tablet by ORAL route 2 times per day As needed; 20 tablet; Refills: 0, kb Product Selection Permitted Signatures: Kirsten Valera, MERCHANDISE COLLECTOR-C MERCHANDISE COLLECTOR-Audelia Snyder, RN RN ss
[2022-09-01 17:42] VITALS: BP 136/76; TEMP 98.3; O2SAT 100
== END 2022-09-01 17:30 | disposition home or self-care (01) ==
LOC: ER 16:25
DX: M54.50 Low back pain, unspecified (principal); M79.10 Myalgia, unspecified site; F17.210 Nicotine dependence, cigarettes, uncomplicated; Z88.8 Allergy status to other drugs, medicaments and biological substances

== ENCOUNTER 2022-09-03 16:06 | Emergency (ER) | payer SELFPAY ==
--- NOTE | 2022-09-03 16:25 | EDPHYS ---
Physician Documentation [facility] Name: Lokesh Alberts Age: 22 yrs Sex: Male : 2000 Arrival Date: 09/03/2022 Time: 16:09 Bed 12 Private MD: ED Physician Anmol Sinha HPI: 09/03 16:26 This 22 yrs old Male presents to ER via Ambulatory with complaints of STD Exposure. rt 16:26 Patient presents to the ED requesting preexposure prophylaxis for HIV. He has no rt physical complaints at this time. He does not believe that he has contracted HIV. Denies any other complaints.. Historical: - Allergies: 16:17 Zoloft; iw - PMHx: 16:17 Anxiety; depressive disorder; iw - Family history:: not pertinent. ROS: 16:26 Constitutional: Negative for fever, chills, and weight loss, : Negative for injury, rt bleeding, discharge, and swelling, Skin: Negative for injury, rash, and discoloration, Neuro: Negative for headache, weakness, numbness, tingling, and seizure, Psych: Negative for depression, anxiety, suicide ideation, homicidal ideation, and hallucinations. Exam: 16:26 Constitutional: This is a well developed, well nourished patient who is awake, alert, rt and in no acute distress. Head/Face: Normocephalic, atraumatic. Eyes: Pupils equal round and reactive to light, extra-ocular motions intact. Lids and lashes normal. Conjunctiva and sclera are non-icteric and not injected. Cornea within normal limits. Periorbital areas with no swelling, redness, or edema. Skin: Warm, dry with normal turgor. Normal color with no rashes, no lesions, and no evidence of cellulitis. Psych: Awake, alert, with orientation to person, place and time. Behavior, mood, and affect are within normal limits. Vital Signs: 16:16 BP 132 / 87; Pulse 78; Resp 16; Temp 98.4; Pulse Ox 100% on R/A; iw MDM: 16:21 Patient medically screened. rt 16:26 Differential Diagnosis STD infection, HIV infection. Data reviewed: vital signs, nurses rt notes. Test considered but Not performed: Labs: No physical complaints, labs including HIV test not indicated. Counseling: I had a detailed discussion with the patient and/or guardian regarding: the need for outpatient follow up, No emergent indications for intervention at this time. Patient instructed to establish care with a primary care provider for preventative medication such as preexposure prophylaxis.. Administered Medications: No medications were administered Disposition Summary: 09/03/22 16:24 Discharge Ordered Location: Home rt Problem: new rt Symptoms: are unchanged rt Condition: Stable rt Diagnosis - Person with feared health complaint in whom no diagnosis is made rt Followup: rt - With: Private Physician - When: 2 - 3 days - Reason: Discharge Instructions: - Discharge Summary Sheet rt - Preventing HIV Infection and AIDS rt Forms: - Medication Reconciliation Form rt - Thank You Letter rt - Antibiotic Education rt - Prescription Opioid Use rt Signatures: Lo Zarate RN RN iw Anmol Sinha MD MD rt
--- NOTE | 2022-09-03 16:25 | ER ---
Nurse's Notes [facility] Name: Lokesh Alberts Age: 22 yrs Sex: Male : 2000 Arrival Date: 09/03/2022 Time: 16:09 Bed 12 Private MD: Diagnosis: Person with feared health complaint in whom no diagnosis is made Presentation: 09/03 16:16 Chief complaint: Patient states: wants to talk to someone about being prescribed PrEP. iw Coronavirus screen: At this time, the client does not indicate any symptoms associated with coronavirus-19. Ebola Screen: Patient negative for fever greater than or equal to 101.5 degrees Fahrenheit, and additional compatible Ebola Virus Disease symptoms Patient denies exposure to infectious person. Patient denies travel to an Ebola-affected area in the 21 days before illness onset. No symptoms or risks identified at this time. Initial Sepsis Screen: Does the patient meet any 2 criteria? No. Patient's initial sepsis screen is negative. Does the patient have a suspected source of infection? No. Patient's initial sepsis screen is negative. Risk Assessment: Do you want to hurt yourself or someone else? Patient reports no desire to harm self or others. Onset of symptoms was September 03, 2022. 16:16 Method Of Arrival: Ambulatory iw 16:16 Acuity: ANTOLIN 5 iw Historical: - Allergies: 16:17 Zoloft; iw - PMHx: 16:17 Anxiety; depressive disorder; iw - Family history:: not pertinent. Vital Signs: 16:16 BP 132 / 87; Pulse 78; Resp 16; Temp 98.4; Pulse Ox 100% on R/A; iw ED Course: 16:09 Patient arrived in ED. mr 16:11 Anmol Sinha MD is Attending Physician. rt 16:17 Triage completed. iw 16:18 Arm band placed on. iw 16:50 Lo Zarate RN is Primary Nurse. iw Administered Medications: No medications were administered Outcome: 16:24 Discharge ordered by MD. rt 16:50 Patient left the ED. iw Signatures: Erum Chris mr Lo Zarate RN RN iw Anmol Sinha MD MD rt Corrections: (The following items were deleted from the chart) 16:20 16:16 Chief complaint: Patient states: wants to talk to someone about being prescribed iw Prep iw
[2022-09-03 17:33] VITALS: BP 132/87; TEMP 98.4; O2SAT 100
== END 2022-09-03 16:50 | disposition home or self-care (01) ==
LOC: ER 16:06
DX: Z71.1 Person with feared health complaint in whom no diagnosis is made (principal)
CPT/HCPCS: 99281

== ENCOUNTER 2022-09-09 23:48 | Emergency (ER) | payer SELFPAY ==
[2022-09-10 01:44] LABS: Urine Blood Negative (Negative); Urine Glucose Negative (Negative); Urine Protein Negative (Negative); Urine pH 7.5 (5.0-7.0)
[2022-09-10 02:09] LABS: Urine Bacteria <20 /HPF (<20); Urine Mucus Slight /HPF (None Seen); Urine RBC <5 /HPF (None Seen)
--- NOTE | 2022-09-10 02:10 | ER ---
Nurse's Notes [facility] Name: Lokesh Alberts Age: 22 yrs Sex: Male : 2000 Arrival Date: 09/09/2022 Time: 23:49 Bed 10 Private MD: Diagnosis: Dysuria Presentation: 09/10 00:28 Chief complaint: Patient states: "I'm getting checked for a UTI". Coronavirus screen: vc1 Vaccine status: Patient reports receiving the 2nd dose of the covid vaccine. Moderna. Ebola Screen: No symptoms or risks identified at this time. Initial Sepsis Screen: Does the patient meet any 2 criteria? No. Patient's initial sepsis screen is negative. Does the patient have a suspected source of infection? No. Patient's initial sepsis screen is negative. Risk Assessment: Do you want to hurt yourself or someone else? Patient reports no desire to harm self or others. Onset of symptoms was September 10, 2022. 00:28 Method Of Arrival: Ambulatory vc1 00:28 Acuity: ANTOLIN 4 vc1 Triage Assessment: 00:30 General: Appears in no apparent distress. uncomfortable, Behavior is. : Reports vc1 burning with urination. Historical: - Allergies: 00:31 Zoloft; vc1 - Home Meds: 00:31 None [Active]; vc1 - PMHx: 00:31 Anxiety; depressive disorder; vc1 - PSHx: 00:31 None; vc1 - Immunization history:: Adult Immunizations up to date. - Social history:: Smoking status: Patient reports the use of cigarette tobacco products, denies chronic smoking, but will smoke occasionally. - Family history:: not pertinent. - Hospitalizations: : No recent hospitalization is reported. Screenin:31 Abuse screen: Denies threats or abuse. Nutritional screening: No deficits noted. vc1 Tuberculosis screening: No symptoms or risk factors identified. Vital Signs: 00:28 Pulse 81; Resp 18; Temp 98.4; Pulse Ox 100% ; Weight 54.43 kg; Height 5 ft. 8 in. vc1 (172.72 cm); 00:28 Body Mass Index 18.25 (54.43 kg, 172.72 cm) vc1 ED Course: 09/09 23:49 Patient arrived in ED. [id number] 23:50 Teo Abarca MD is Attending Physician. rn 09/10 00:30 Triage completed. vc1 00:31 Arm band placed on right wrist. vc1 02:09 Andrew Fry MD is Referral Physician. rn 02:13 No provider procedures requiring assistance completed. Patient did not have IV access vc1 during this emergency room visit. Administered Medications: No medications were administered Medication: 02:13 VIS not applicable for this client. vc1 Outcome: 02:09 Discharge ordered by . rn 02:13 Discharged to home vc1 02:13 Condition: good 02:13 Discharge instructions given to patient, Instructed on discharge instructions, follow up and referral plans. Demonstrated understanding of instructions, follow-up care. 02:19 Patient left the ED. vc1 Signatures: Teo Abarca MD MD rn Jeffries, Jennifer jj6 Ruby Rapp RN RN vc1
--- NOTE | 2022-09-10 02:10 | EDPHYS ---
Physician Documentation [facility] Name: Lokesh Alberts Age: 22 yrs Sex: Male : 2000 Arrival Date: 09/09/2022 Time: 23:49 Bed 10 Private MD: ED Physician Teo Abarca HPI: 09/10 00:51 This 22 yrs old Male presents to ER via Ambulatory with complaints of Pain With rn Urination. 00:51 The patient presents with urinary symptoms, dysuria. rn 00:51 Onset: The symptoms/episode began/occurred yesterday. Modifying factors: The symptoms rn are alleviated by nothing, the symptoms are aggravated by urinating. Associated signs and symptoms: Pertinent positives: dysuria, Pertinent negatives: abdominal pain, fever, hematuria, nausea, vomiting. Severity of symptoms: At their worst the symptoms were mild, in the emergency department the symptoms are unchanged. The patient has not experienced similar symptoms in the past. The patient has not recently seen a physician. Pt reports mild dysuria, no swelling, no drainage, no hematuria, states has has UTI in past. NO fever. No concern for STI.. Historical: - Allergies: 00:31 Zoloft; vc1 - Home Meds: 00:31 None [Active]; vc1 - PMHx: 00:31 Anxiety; depressive disorder; vc1 - PSHx: 00:31 None; vc1 - Immunization history:: Adult Immunizations up to date. - Social history:: Smoking status: Patient reports the use of cigarette tobacco products, denies chronic smoking, but will smoke occasionally. - Family history:: not pertinent. - Hospitalizations: : No recent hospitalization is reported. ROS: 00:51 Constitutional: Negative for fever, chills, and weight loss, Eyes: Negative for injury, rn pain, redness, and discharge, Cardiovascular: Negative for chest pain, palpitations, and edema, Respiratory: Negative for shortness of breath, cough, wheezing, and pleuritic chest pain, Abdomen/GI: Negative for abdominal pain, nausea, vomiting, diarrhea, and constipation, Back: Negative for injury and pain, : + dysuria, no rash or swelling MS/Extremity: Negative for injury and deformity, Skin: Negative for injury, rash, and discoloration, Neuro: Negative for headache, weakness, numbness, tingling, and seizure. Exam: 00:51 Constitutional: This is a well developed, well nourished patient who is awake, alert, rn and in no acute distress. Cardiovascular: Regular rate and rhythm. No pulse deficits. Abdomen/GI: soft, non-tender Male : No penile discharge or lesions. Pt does have accesory/double meatus, no erythema. Skin: Warm, dry with normal turgor. Normal color with no rashes, no lesions, and no evidence of cellulitis. Vital Signs: 00:28 Pulse 81; Resp 18; Temp 98.4; Pulse Ox 100% ; Weight 54.43 kg; Height 5 ft. 8 in. vc1 (172.72 cm); 00:28 Body Mass Index 18.25 (54.43 kg, 172.72 cm) vc1 MDM: 09/09 23:50 Patient medically screened. rn 09/10 02:05 Differential diagnosis: UTI, urethritis. Data reviewed: vital signs, nurses notes, laboratory scientist test result(s), and as a result, I will discharge patient. Counseling: I had a detailed discussion with the patient and/or guardian regarding: the historical points, exam findings, and any diagnostic results supporting the discharge/admit diagnosis, lab results, the need for outpatient follow up, to return to the emergency department if symptoms worsen or persist or if there are any questions or concerns that arise at home. 02:05 Special discussion: I discussed with the patient/guardian in detail that at this point rn there is no indication for admission to the hospital. It is understood, however, that if the symptoms persist or worsen the patient needs to return immediately for re-evaluation. Based on the history and exam findings, there is no indication for further emergent testing or inpatient evaluation. I discussed with the patient/guardian the need to see the urologist for further evaluation of the symptoms. ED course: Pt with negative UA, exam shows accessory penile meatus without evidence of infection/inflammation. . 09/09 23:57 Order name: Urine Culture rn 09/09 23:57 Order name: Urine Microscopic Only rn 09/09 23:57 Order name: Urine Dipstick-Ancillary (obtain specimen); Complete Time: 02:12 rn 09/10 01:44 Order name: Urine Dipstick-Ancillary EDMS Administered Medications: No medications were administered Disposition Summary: 09/10/22 02:09 Discharge Ordered Location: Home rn Problem: new rn Symptoms: have improved rn Condition: Stable rn Diagnosis - Dysuria rn Followup: rn - With: Andrew Fry MD - When: As needed - Reason: Recheck today's complaints, Re-evaluation by your physician Discharge Instructions: - Discharge Summary Sheet rn - Dysuria rn Forms: - Medication Reconciliation Form rn - Thank You Letter rn - Antibiotic state attorney - Prescription Opioid Use rn Signatures: Dispatcher [employer] EDIA Teo Abarca MD MD rn Calcote, Vanessa, RN RN vc1 Corrections: (The following items were deleted from the chart) 02:07 00:51 Constitutional: This is a well developed, well nourished patient who is awake, rn alert, and in no acute distress. Cardiovascular: Regular rate and rhythm. No pulse deficits. Abdomen/GI: soft, non-tender Skin: Warm, dry with normal turgor. Normal color with no rashes, no lesions, and no evidence of cellulitis. rn
[2022-09-10 03:30] VITALS: TEMP 98.4; O2SAT 100
== END 2022-09-10 02:19 | disposition home or self-care (01) ==
LOC: ER 23:48
DX: R30.0 Dysuria (principal); F17.210 Nicotine dependence, cigarettes, uncomplicated; Z88.8 Allergy status to other drugs, medicaments and biological substances
CPT/HCPCS: 81003; 81015; 87086; 87088; 99281

== ENCOUNTER 2023-11-12 01:23 | Emergency (ER) | payer SELFPAY ==
--- NOTE | 2023-11-12 01:54 | ER ---
Nurse's Notes [facility] Name: Lokesh Alberts Age: 23 yrs Sex: Male : 2000 Arrival Date: 11/12/2023 Time: 01:23 Bed DX3 Private MD: Diagnosis: Dental root caries;Dental caries, unspecified Presentation: 11/11 01:40 Chief complaint: Patient states: Pain to teeth on right upper side onset yesterday. Pt cm10 reports that the pain is intermittent. Coronavirus screen: Client denies travel out of the [place] in the last 14 days. At this time, the client does not indicate any symptoms associated with coronavirus-19. Ebola Screen: Patient denies travel to an Ebola-affected area in the 21 days before illness onset. No symptoms or risks identified at this time. Initial Sepsis Screen: Does the patient meet any 2 criteria? No. Patient's initial sepsis screen is negative. Does the patient have a suspected source of infection? No. Patient's initial sepsis screen is negative. Risk Assessment: Do you want to hurt yourself or someone else? Patient reports no desire to harm self or others. Onset of symptoms was November 12, 2023. 01:40 Method Of Arrival: Ambulatory cm10 01:40 Acuity: ANTOLIN 4 cm10 Triage Assessment: 01:41 General: Appears in no apparent distress. comfortable, Behavior is calm, cooperative. cm10 Pain: Complains of pain in mouth. EENT: Poor dentition noted. Reports pain in upper right first bicuspid and upper right central incisor. Neuro: No deficits noted. Level of Consciousness is awake, alert, obeys commands, Oriented to person, place, time, situation. Respiratory: No deficits noted. Airway is patent Respiratory effort is even, unlabored, Respiratory pattern is regular, symmetrical. Historical: - Allergies: 01:41 Zoloft; cm10 - Home Meds: :41 None [Active]; cm10 - PMHx: :41 Anxiety; depressive disorder; cm10 - PSHx: 01:41 None; cm10 - Immunization history:: Adult Immunizations up to date. - Infectious Disease History:: Denies. - Social history:: Smoking status: Reported history of juuling and/or vaping. - Family history:: not pertinent. Screenin:07 [facility] ED Fall Risk Assessment (Adult) History of falling in the last 3 months, cm10 including since admission No falls in past 3 months (0 pts) Confusion or Disorientation No (0 pts) Intoxicated or Sedated No (0 pts) Impaired Gait No (0 pts) Mobility Assist Device Used No (0 pt) Altered Elimination No (0 pt) Score/Fall Risk Level 0 - 2 = Low Risk Oriented to surroundings, Maintained a safe environment, Hourly rounding (assess needs \T\ fall precautionary measures) done. Abuse screen: Denies threats or abuse. Denies injuries from another. Nutritional screening: No deficits noted. Tuberculosis screening: No symptoms or risk factors identified. Vital Signs: 01:40 BP 137 / 94; Pulse 90; Resp 18; Temp 97.6(O); Pulse Ox 100% on R/A; Weight 45.36 kg; cm10 Height 5 ft. 7 in. ; Pain 6/10; 01:40 Body Mass Index 15.66 (45.36 kg, 170.18 cm) cm10 01:40 Pain Scale: Adult cm10 ED Course: 01:28 Patient arrived in ED. gm2 01:32 Candido Hurst MD is Attending Physician. jatinder 01:41 Triage completed. cm10 01:42 Arm band placed on Patient placed in an exam room, on a stretcher. cm10 02:06 Jackie Nava, PHILIP is Primary Nurse. cm10 02:07 Patient has correct armband on for positive identification. Provided Education on: cm10 Follow-up instructions. Cardiac monitoring not applicable on this patient. 02:07 No provider procedures requiring assistance completed. Patient did not have IV access cm10 during this emergency room visit. Administered Medications: 02:06 Not Given (Patient Refused): hydrocodone-acetaminophen5 mg-325 mg 1 tabs PO once cm10 02:07 Drug: Amoxicillin PO 500 mg PO once Route: PO; cm10 02:07 Follow up: Response: Medication administered at discharge. cm10 02:07 Drug: Ibuprofen PO 400 mg PO once Route: PO; cm10 02:07 Follow up: Response: Medication administered at discharge. cm10 Medication: 02:07 VIS not applicable for this client. cm10 Outcome: 01:54 Discharge ordered by . jatinder 02:08 Discharged to home ambulatory, cm10 02:08 Condition: good 02:08 Discharge instructions given to patient, Instructed on discharge instructions, follow up and referral plans. medication usage, Demonstrated understanding of instructions, follow-up care, medications, Prescriptions given X 2, 02:08 Patient left the ED. cm10 Signatures: Candido Hurst MD MD cha Martinez, Clarissa RN RN cm10 Gunjan Carter 2
--- NOTE | 2023-11-12 01:54 | EDPHYS ---
Physician Documentation [facility] Name: Lokesh Alberts Age: 23 yrs Sex: Male : 2000 Arrival Date: 11/12/2023 Time: :23 Bed DX3 Private MD: ED Physician Candido Hurst HPI: 11/11 01:48 This 23 yrs old Male presents to ER via Ambulatory with complaints of jatinder Toothache. 01:48 The patient presents with pain, redness. The problem is located in the frenulum and jatinder gums. Onset: The symptoms/episode began/occurred 3 day(s) ago. Duration: The symptoms are continuous, and are steadily getting worse. Modifying factors: The symptoms are alleviated by nothing, the symptoms are aggravated by nothing. Associated signs and symptoms: The patient has no apparent associated signs or symptoms. Severity of symptoms: At their worst the symptoms were mild, moderate, in the emergency department the symptoms are unchanged. The patient has not experienced similar symptoms in the past. Historical: - Allergies: 01:41 Zoloft; cm10 - Home Meds: 01:41 None [Active]; cm10 - PMHx: 01:41 Anxiety; depressive disorder; cm10 - PSHx: 01:41 None; cm10 - Immunization history:: Adult Immunizations up to date. - Infectious Disease History:: Denies. - Social history:: Smoking status: Reported history of juuling and/or vaping. - Family history:: not pertinent. ROS: 01:48 Constitutional: Negative for fever, chills, and weight loss, Eyes: Negative for injury, jatinder pain, redness, and discharge, Neck: Negative for injury, pain, and swelling, Cardiovascular: Negative for chest pain, palpitations, and edema, Respiratory: Negative for shortness of breath, cough, wheezing, and pleuritic chest pain, Abdomen/GI: Negative for abdominal pain, nausea, vomiting, diarrhea, and constipation, Back: Negative for injury and pain, : Negative for injury, bleeding, discharge, and swelling, MS/Extremity: Negative for injury and deformity, Skin: Negative for injury, rash, and discoloration, Neuro: Negative for headache, weakness, numbness, tingling, and seizure, Psych: Negative for depression, anxiety, suicide ideation, homicidal ideation, and hallucinations, Allergy/Immunology: Negative for hives, rash, and allergies, Endocrine: Negative for neck swelling, polydipsia, polyuria, polyphagia, and marked weight changes, Hematologic/Lymphatic: Negative for swollen nodes, abnormal bleeding, and unusual bruising, 01:48 ENT: Positive for dental pain, Teeth pain Exam: 01:48 Constitutional: This is a well developed, well nourished patient who is awake, alert, jatinder and in no acute distress. Eyes: Pupils equal round and reactive to light, extra-ocular motions intact. Lids and lashes normal. Conjunctiva and sclera are non-icteric and not injected. Cornea within normal limits. Periorbital areas with no swelling, redness, or edema. ENT: Nares patent. No nasal discharge, no septal abnormalities noted. Tympanic membranes are normal and external auditory canals are clear. Oropharynx with no redness, swelling, or masses, exudates, or evidence of obstruction, uvula midline. Mucous membranes moist. Neck: Trachea midline, no thyromegaly or masses palpated, and no cervical lymphadenopathy. Supple, full range of motion without nuchal rigidity, or vertebral point tenderness. No Meningismus. Chest/axilla: Normal chest wall appearance and motion. Nontender with no deformity. No lesions are appreciated. Cardiovascular: Regular rate and rhythm with a normal S1 and S2. No gallops, murmurs, or rubs. Normal PMI, no JVD. No pulse deficits. Respiratory: Lungs have equal breath sounds bilaterally, clear to auscultation and percussion. No rales, rhonchi or wheezes noted. No increased work of breathing, no retractions or nasal flaring. Abdomen/GI: Soft, non-tender, with normal bowel sounds. No distension or tympany. No guarding or rebound. No evidence of tenderness throughout. Back: No spinal tenderness. No costovertebral tenderness. Full range of motion. Male : Normal genitalia with no discharge or lesions. Skin: Warm, dry with normal turgor. Normal color with no rashes, no lesions, and no evidence of cellulitis. MS/ Extremity: Pulses equal, no cyanosis. Neurovascular intact. Full, normal range of motion. Neuro: Awake and alert, GCS 15, oriented to person, place, time, and situation. Cranial nerves II-XII grossly intact. Motor strength 5/5 in all extremities. Sensory grossly intact. Cerebellar exam normal. Normal gait. Psych: Awake, alert, with orientation to person, place and time. Behavior, mood, and affect are within normal limits. 01:48 ENT: Mouth: Oral mucosa: moist, Gums: normal with healthy appearance, Tongue: is normal, abscess, is not appreciated, Vital Signs: 01:40 BP 137 / 94; Pulse 90; Resp 18; Temp 97.6(O); Pulse Ox 100% on R/A; Weight 45.36 kg; cm10 Height 5 ft. 7 in. ; Pain 6/10; 01:40 Body Mass Index 15.66 (45.36 kg, 170.18 cm) cm10 01:40 Pain Scale: Adult cm10 MDM: 01:32 Patient medically screened. jatinder 01:51 Differential diagnosis: dental caries, gingivitis, dental abscess, acute necrotizing ajtinder ulcerative gingivitis, gingivostomatitis. Data reviewed: vital signs, nurses notes. Consideration of Admission/Observation Escalation of care including admission/observation considered. I considered the following discharge prescriptions or medication management in the emergency department Medications were administered in the Emergency Department. See MAR. Test considered but Not performed: Labs: no cbc, no comp met. Care significantly affected by the following chronic conditions: anxiety, depression. Administered Medications: 02:06 Not Given (Patient Refused): hydrocodone-acetaminophen5 mg-325 mg 1 tabs PO once cm10 02:07 Drug: Amoxicillin PO 500 mg PO once Route: PO; cm10 02:07 Follow up: Response: Medication administered at discharge. cm10 02:07 Drug: Ibuprofen PO 400 mg PO once Route: PO; cm10 02:07 Follow up: Response: Medication administered at discharge. cm10 Disposition Summary: 11/12/23 01:54 Discharge Ordered Notes: Location: Home jatinder Problem: new jatinder Symptoms: have improved jatinder Condition: Stable jatinder Diagnosis - Dental root caries jatinder - Dental caries, unspecified jatinder Followup: jatinder - With: Private Physician - When: 2 - 3 days - Reason: Recheck today's complaints, Continuance of care, Re-evaluation by your physician Discharge Instructions: - Discharge Summary Sheet jatinder - Dental Caries, Adult jatinder - Dental Pain jatinder - Dental Pain, [id number] jatinder - Diet and Dental Disease jatinder - Dental Caries, Adult, [id number] jatinder Forms: - Medication Reconciliation Form jatinder - Antibiotic Education jatinder - Prescription Opioid Use jatinder - Patient Portal Instructions jatinder - Leadership Thank You Letter [facility] Prescriptions: - Amoxicillin 500 mg Oral Capsule - take 1 capsule ORAL route every 8 hours for 10 days; 30 tablet; Refills: 0, [facility] Product Selection Permitted - Motrin IB 200 mg Oral tablet - take 2 tablet ORAL route every 6 hours As needed as needed with food; 30 [facility] tablet; Refills: 0, Product Selection Permitted Signatures: Candido Hurst MD MD cha Martinez, Clarissa RN RN cm10
[2023-11-12] MEDS ORDERED: IBUPROFEN 400 MG TAB ONE (02:02)
[2023-11-12] MEDS ORDERED: AMOXICILLIN TRIHYDR 250 MG CAP ONE (02:03)
[2023-11-12 02:28] VITALS: BP 137/94; TEMP 97.6; O2SAT 100
== END 2023-11-12 02:08 | disposition home or self-care (01) ==
LOC: ER 01:23
DX: K02.9 Dental caries, unspecified (principal); K02.7 Dental root caries